=== PATIENT | male | born 1970 | race Caucasian/White ===

== ENCOUNTER → 2016-10-17 | Outpatient (CLI) | payer OTHER ==
--- NOTE | 2016-10-17 16:27 | CPEEG ---
[f rep st] ELECTROENCEPHALOGRAM 4-HOUR VIDEO EEG DATE OF STUDY: 10/17/2016 DATE OF INTERPRETATION: 10/17/2016 INTERPRETATION: This 4-hour video EEG recording is normal. There were no potentially epileptogenic abnormalities present during the awake or sleep recordings. During the video EEG monitoring kwabena florez, the patient did not have any clinical events. REPORT: This 4-hour video EEG contains 10 Hz alpha activity of the posterior head regions. The bernard kground activity was normal and symmetric. There was no abnormal activation at rest, during photic stimulation, or hyperventilation. The patient became drowsy and intermittently fell asleep during t he study. There was no abnormal activation during drowsiness, sleep, or during times of arousal. D uring the video EEG monitoring session, the patient did not have any clinical events. /[id number]/MODL
== END ==
LOC: FCPNEURO 08:42
PROVIDERS: ATTEND Psychiatry & Neurology Neurology
DX: R40.4 Transient alteration of awareness (principal); R06.83 Snoring; R06.81 Apnea, not elsewhere classified

== ENCOUNTER → 2016-10-18 | Outpatient (CLI) | payer OTHER | LOC: FIMAGING 13:08 | PROVIDERS: ATTEND Psychiatry & Neurology Neurology | DX: R40.4 Transient alteration of awareness (principal); R06.83 Snoring; R06.81 Apnea, not elsewhere classified; R93.0 Abnormal findings on diagnostic imaging of skull and head, not elsewhere classified ==

== ENCOUNTER → 2016-10-26 | Outpatient (CLI) | payer OTHER ==
[~2016-10-26] MED LIST: GADOBUTROL 10 ML VIAL IVP ONE
== END ==
LOC: FIMAGING 16:20
PROVIDERS: ATTEND Psychiatry & Neurology Neurology
DX: R40.4 Transient alteration of awareness (principal)
CPT/HCPCS: A9585

== ENCOUNTER 2017-04-08 04:20 | Emergency (ER) | payer SELFPAY ==
[2017-04-08] MEDS ORDERED: IBUPROFEN 600 MG TAB PO ONE (04:45)
[2017-04-08] MEDS ORDERED: LIDOCAINE 2% JELLY 5 ML TUBE TP ONE (04:48)
--- NOTE | 2017-04-08 04:54 | EDPHY ---
H & P Time Seen by Provider: 04/08/17 04:30 HPI/ROS: This patient has thoracic outlet syndrome and occasionally gets paresthesias and burning pain to the right arm. To treat the symptoms tonight he tried capsaicin [id number] cream and reports intense burning symptoms since shortly after application. In hind site, the patient recalls that he has much more prominent sensitivity to peppers than the average person. He explains that he has symptoms last for typically 12 hours after eating a small pepper in terms of the burning sensation. He reports associated redness to the affected skin of the right arm. He states the intensity of the burning discomfort is severe. He also touched his right knee after applying the cream and reports mild burning the skin adjacent to his knee. ROS: Constitutional: No fevers Dermatologic: No blistering. 5 point ROS is otherwise negative. Past Medical/Surgical History: Temporal lobe epilepsy Thoracic outlet syndrome Smoking Status: Never smoked Physical Exam: Physical Exam Vital signs are normal. General: No acute distress HEENT: No angioedema. No drooling or stridor. No dysphonia. Eyes: Pupils equal and react to light. Extraocular motions are intact. No conjunctival injection Lungs: No respiratory distress. Cardiac: Brisk capillary refill is intact throughout. Pulses are 2+ and symmetric in the affected extremity. Skin: Confluent erythema to the right arm at the site of application of the capsaicin. This area is warm to touch in addition. There is a small area of affected skin anterior to the knee few cm in size. There is no blistering. Neuro: Alert with no sensorimotor deficits in the affected extremity. Constitutional: Initial Vital Signs Temperature (C) 36.1 C 04/08/17 04:30 Heart Rate 93 04/08/17 04:30 Respiratory Rate 20 04/08/17 04:30 Blood Pressure 146/87 H 04/08/17 04:30 O2 Sat (%) 96 04/08/17 04:30 O2 Delivery Mode Room Air Allergies/Adverse Reactions: No Known Allergies Allergy (Verified 04/08/17 04:24) Home Medications: Medication Instructions Recorded Bupropion HCl 02/05/16 Vicoprofen 7.5-200 mg Tablet 02/05/16 traMADol 02/05/16 Dexmethylphenidate HCl [FOCALIN] 04/08/17 Escitalopram Oxalate [Lexapro 10 04/08/17 MG] Hydrocortisone 0.2% Valerate 1 ronald TP BID #15 g 04/08/17 [Westcort 0.2% Cream (*)] MDM/Departure - MDM Medications Given: Discontinued Medications Ibuprofen (Motrin) 600 mg PO EDNOW ONE Stop: 04/08/17 04:46 Last Admin: 04/08/17 04:50 Dose: 600 mg Lidocaine (Lidocaine 2% Jelly) 1 ronald TP EDNOW ONE Stop: 04/08/17 04:49 Last Admin: 04/08/17 04:55 Dose: 1 pkg ED Course/Re-evaluation: The patient has apparent capsaicin allergy is having significant burning discomfort associated with topical application. There is no blistering and no other red flag findings. No clinical evidence of systemic allergic reaction-no respiratory symptoms. No facial angioedema or other concerning findings. Course: The patient clean his arm here again with soap and water and then treated him with ibuprofen p.o. and topical lidocaine to the arm that is affected with relief. Will send him home with a plan Westcort cream applied 2 times a day to the affected arm and continue anti-inflammatories for discomfort if needed. He will follow up with Dermatology for any ongoing symptoms in - Depart Disposition: Home, Routine, Self-Care Clinical Impression: AD (atopic dermatitis) Qualifiers: Atopic dermatitis type: other Qualified Code(s): L20.89 - Other atopic dermatitis Condition: Good Instructions: Dermatitis (ED) Additional Instructions: Diagnosis: Dermatitis-right arm Plan: Westcort steroid cream 2 times a day until symptoms resolve Ibuprofen or similar anti-inflammatory by mouth Avoid capsaicin in the future. Follow up with the operational review sergeant for any ongoing symptoms last beyond the next 5 days. Prescriptions: Hydrocortisone 0.2% Valerate [Westcort 0.2% Cream (*)] 1 ronald TP BID #15 g Referrals: Patient,NotPresent [Primary Care Provider] - As per Instructions DEBBIE SERRANO [Medical Doctor] - As per Instructions
[2017-04-08 05:58] VITALS: BP 121/72; PULSE 78; RESP 18; TEMP 98.1; O2SAT 98
== END 2017-04-08 05:58 | disposition home or self-care (01) ==
LOC: CED 04:20
DX: L20.89 Other atopic dermatitis (principal)